=== PATIENT | female | born 1940 | race Caucasian/White ===

== ENCOUNTER 2020-09-30 07:34 | Emergency (ER) | payer SELFPAY ==
[2020-09-30] VITALS (7 sets, daily range): BP systolic 137–195; BP diastolic 78–93; PULSE 58–62; RESP 15–19; TEMP 36.7; O2SAT 92–95; BMI 25.6
--- NOTE | 2020-09-30 07:49 | ECG_ITS ---
APPROVED REPORT Exam: Resting ECG HR:59 bpm ECG Measurements Heart Rate 59 AXES [place] 212 P 25 QRSd 92 QRS -16 QT 448 T 30 QTc 443 Conclusion Sinus bradycardia with 1st degree AV block Incomplete right bundle branch block Latge r wave progression Abnormal ECG Electronically signed by : Wilfrid Dudley, 09/30/2020 19:49:09
--- NOTE | 2020-09-30 07:58 | XR_ITS ---
PROCEDURE: XR CHEST PORTABLE CLINICAL HISTORY: weakness Cough COMPARISON: No exams were available for comparison FINDINGS: The cardiomediastinal silhouette and pulmonary vascularity are within normal limits. The lungs are clear without infiltrates, suspicious nodules, or pleural effusions. No acute bony abnormalities. IMPRESSION: No acute findings. Dictated by: Dom Lawson MD 09/30/2020 08:24 Dom Lawson MD in [facility] 09/30/2020 08:24
[2020-09-30 08:21] LABS: Chloride 83 mmol/L (98-107); Sodium 123 mmol/L (136-145)
[2020-09-30 08:23] LABS: Basophils % 0.3 % (0.1-2.0); Eosinophils % 0.2 % (0.1-12.0); Hemoglobin 15.2 g/dL (12.2-16.2); Lymphocytes # 0.8 K/mm3 (0.7-4.5); Lymphocytes % 33.3 % (10-50); Mean Corpuscular HGB Conc 33.8 g/dL (31.8-35.4); Mean Corpuscular Hemoglobin 29.7 pg (27.0-31.2); Mean Corpuscular Volume 87.8 fl (81-99); Mean Platelet Volume 8.1 fl (7.4-10.4); Monocytes # 0.3 K/mm3 (0.1-1.0); Monocytes % 11.7 % (1.7-9.3); Neutrophils # 1.2 K/mm3 (1.8-7.8); Neutrophils % 54.4 % (37.0-80.0); Platelet Count 151 K/mm3 (142-424); Red Blood Count 5.13 M/mm3 (4.20-5.40); Red Cell Distribution Width 12.5 % (11.5-17.5); White Blood Count 2.3 K/mm3 (4.8-10.8)
--- NOTE | 2020-09-30 08:23 | HMH.EDGENADL ---
ED Disposition Clinical Impression: Hypokalemia, Generalized weakness Disposition: Home, Self-Care Condition on Discharge: Good Instructions: DI for Hypokalemia, DI for Muscle Weakness Additional Instructions: You have been evaluated for generalized weakness, diagnosed with hypokalemia. Please follow-up with your primary care doctor in the next few days for symptom recheck. Take potassium supplementation. Try to eat a balanced diet. Return to the emergency department if you have any new or worsening symptoms. Prescriptions: Potassium Chloride 40 meq PO DAILY 10 Days #20 tablet.er Transmission Status: Pending to [facility] Referrals: PCP,No [Non-Staff] - Time of Disposition: 10:17 - Critical Care Critical Care Time: No Attestation: On , the high probability of a clinically significant, sudden or life threatening deterioration of the following system(s) required my full and direct attention, intervention and personal management. The time I documented below is in addition to time spent performing reported procedures but includes the following listed in this critical care notation. Medical Decision Making - Medical Records Medical records reviewed: Yes: I reviewed the patient's medical records. - Chi Inquiry Pt receiving controlled substance: No Vital Signs: 09/30/20 07:35 09/30/20 07:56 09/30/20 08:14 Temperature 98.0 F Temperature Source Oral Pulse Rate [Left Radial] 62 59 L 60 Respiratory Rate 19 Blood Pressure [Right Arm] 195/93 H 176/91 H 173/79 H Blood Pressure Mean [Right Arm] 127 119 110 Blood Pressure Source [Right Arm] Automatic Cuff Automatic Cuff Automatic Cuff Blood Pressure Position [Right Arm] Sitting Sitting Sitting 02 Sat by Pulse Oximetry 94 L 92 L 95 Oxygen Delivery Method Room Air Room Air Room Air 09/30/20 08:30 09/30/20 09:37 Temperature Temperature Source Pulse Rate [Left Radial] 60 59 L Respiratory Rate 15 Blood Pressure [Right Arm] 189/81 H 158/80 H Blood Pressure Mean [Right Arm] 117 106 Blood Pressure Source [Right Arm] Automatic Cuff Automatic Cuff Blood Pressure Position [Right Arm] Sitting Sitting 02 Sat by Pulse Oximetry 92 L 92 L Oxygen Delivery Method Room Air Room Air - Lab Data Lab Results 09/30/20 07:50: WBC 2.3 L, RBC 5.13, Hgb 15.2, Hct 45.0, MCV 87.8, MCH 29.7, MCHC 33.8, RDW 12.5, Plt Count 151, MPV 8.1, Neut % (Auto) 54.4, Lymph % (Auto) 33.3, [place] % (Auto) 11.7 H, Eos % (Auto) 0.2, Baso % (Auto) 0.3, Neut # (Auto) 1.2 L, Lymph # (Auto) 0.8, [place] # (Auto) 0.3, Eos # (Auto) 0.0, Baso # (Auto) 0.0 09/30/20 07:50: Sodium 123 L, Potassium 2.7 L*, Chloride 83 L, Carbon Dioxide 32 H, Anion Gap 10.7, BUN 7, Creatinine 0.50 L, Estimated Creat Clear 45, Estimated GFR 119, Est GFR ( Amer) 144, Glucose 128 H, Calcium 8.7, Troponin I < 0.01 09/30/20 07:50: SARS-CoV-2 IgG Ab (Rapid) Positive A, SARS-CoV-2 IgM Ab (Rapid) Negative 09/30/20 07:50: NT-Pro-B Natriuret Pep 902 H 09/30/20 09:00: Urine Color Yellow, Urine Appearance Clear, Urine pH 7.0, Ur Specific [place] 1.020, Urine Protein 1+, Urine Glucose (UA) Negative, Urine Ketones 1+, Urine Blood 2+, Urine Nitrate Negative, Urine Bilirubin Negative, Urine Urobilinogen 0.2, Ur Leukocyte Esterase Negative, Urine RBC 5-10, Urine WBC 3-5, Ur Squamous Epith Cells 3-5 Result diagrams: 09/30/20 07:50 09/30/20 07:50 Orders (Tests/Meds): ED MEDICATIONS Discontinued Medications Generic Name Dose Route Start Last Admin Trade Name Freq PRN Reason Stop Dose Admin Potassium Chloride 40 meq 09/30/20 08:54 09/30/20 09:00 Potassium Chloride 20meq Tab PO 09/30/20 08:55 40 meq ONCE ONE Administration ORDERS Category Date Time Status Monoscreen (Rapid) Stat Lab 09/30/20 10:10 Ordered Troponin I Q3H Lab 09/30/20 11:00 Ordered Troponin I Q3H Lab 09/30/20 14:00 Ordered - ECG Data Tracing #1 Sinus bradycardia with rate of 59 bpm. QRS 92, QTc 443. First-deg
[2020-09-30 08:24] LABS: Anion Gap 10.7 mEq/L (5-15); Blood Urea Nitrogen 7 mg/dl (7-17); Calcium 8.7 mg/dl (8.4-10.2); Carbon Dioxide 32 mmol/L (22.0-30.0); Creatinine Clearance Estimated 45 mL/min (50-200); Estimated Glomerular Filt Rate 119 ml/min (>60); GFR (African American) 144 ML/MIN (>60); Glucose 128 mg/dl (74-100)
[2020-09-30 08:27] LABS: Potassium 2.7 mmoL/L (3.5-5.1)
--- NOTE | 2020-09-30 08:28 | PC.NURSE ---
Critical potassium, Md aware
[2020-09-30 08:35] LABS: NT Pro Brain Natriuretic Pep. 902 pg/mL (0-450)
[2020-09-30 08:38] LABS: Troponin I < 0.01 ng/ml (0.00-0.034)
[2020-09-30 08:40] LABS: Coronavirus 19 IgG Antibody Positive (Negative); Coronavirus 19 IgM Antibody Negative (Negative)
[2020-09-30 09:15] LABS: Microscopic, Urine URINE MICROSCOPIC (MICROSCOPIC)
[2020-09-30 09:20] LABS: Appearance,Urine CLEAR (Clear); Bilirubin,Urine Negative (Negative); Blood, Urine 2+ (Negative); Color,Urine YELLOW (Yellow); Glucose,Urine (UA) Negative (Negative); Ketones,Urine 1+ (Negative); Leukocyte Esterase,Urine Negative (Negative); Nitrate,Urine Negative (Negative); Protein,Urine 1+ (Negative); Urobilinogen,Urine 0.2 EU/dl (0.2)
--- NOTE | 2020-09-30 10:02 | PC.NURSE ---
pt walked to restroom with minimal assistance.
[2020-09-30 10:35] LABS: Monoscreen (Rapid) Negative (Negative)
== END 2020-09-30 10:36 | disposition home or self-care (01) ==
PROVIDERS: Emergency Medicine; Emergency Provider Emergency Medicine; PCP Nurse Practitioner Family
DX: E87.6 Hypokalemia (principal); R53.83 Other fatigue; Z01.84 Encounter for antibody response examination; I10 Essential (primary) hypertension; Z79.899 Other long term (current) drug therapy; Z88.2 Allergy status to sulfonamides
CPT/HCPCS: 71045; 80048; 81001; 83880; 84484; 85025; 86318; 86328; 93005; 99284

== ENCOUNTER 2020-10-11 11:27 | Emergency (ER) | payer SELFPAY ==
[2020-10-11 11:28] VITALS: BP 201/95; PULSE 69; RESP 16; TEMP 36.8; O2SAT 98; BMI 26.6
--- NOTE | 2020-10-11 11:43 | ECG_ITS ---
APPROVED REPORT Exam: Resting ECG HR:63 bpm ECG Measurements Heart Rate 63 AXES [place] 172 P 11 QRSd 70 QRS -13 QT 390 T 47 QTc 399 Conclusion Normal sinus rhythm Cannot rule out Anterior infarct, age undetermined Abnormal ECG Electronically signed by : Wilfrid Dudley, 10/12/2020 19:56:32
--- NOTE | 2020-10-11 11:50 | XR_ITS ---
PROCEDURE: XR CHEST PORTABLE CLINICAL HISTORY: cough Weakness and cough COMPARISON: CR XR CHEST PORTABLE from 09/30/2020 FINDINGS: The cardiomediastinal silhouette and pulmonary vascularity are within normal limits. The lungs are clear without infiltrates, suspicious nodules, or pleural effusions. There is calcified granuloma in the right lower lobe. Upper lobes are clear. IMPRESSION: No acute findings. Dictated by: Dom Lawson MD 10/11/2020 14:10 Dom Lawson MD in [facility] 10/11/2020 14:10
--- NOTE | 2020-10-11 11:51 | CT_ITS ---
PROCEDURE: CT HEAD/BRAIN WO CON CLINICAL INDICATION: weakness Total-body weakness COMPARISON: No exams were available for comparison TECHNIQUE: Axial images obtained. All CT scans at the facility use one or more dose reduction, viz: automated exposure control, ma/kV adjustment per patient size (including targeted exams where dose is matched to indication, i.e. head), or iterative reconstruction technique. FINDINGS: No midline shift, mass effect, intracranial hemorrhage, hydrocephalus, or extra-axial fluid collection is evident. There is generalized atrophy with hypoattenuation of the periventricular white matter consistent with microangiopathic changes.. There is an lacunar infarction in the right subinsular region. The calvarium has an unremarkable appearance. No mastoid effusion. Mild mucosal thickening involves the ethmoid sinuses and right frontal sinus. IMPRESSION: 1. No acute intracranial findings. 2. Mild sinus disease Dictated by: Dom Lawson MD 10/11/2020 14:12 Dom Lawson MD in [facility] 10/11/2020 14:12
[2020-10-11 11:58] VITALS: BP 178/99; PULSE 64; RESP 16; O2SAT 96
--- NOTE | 2020-10-11 11:58 | HMH.EDWEAK ---
ED Disposition Clinical Impression: Generalized weakness, COVID-19 Hypertension Qualifiers: Hypertension type: essential hypertension Qualified Code(s): I10 - Essential (primary) hypertension Disposition: Home, Self-Care Condition on Discharge: Good Instructions: Hypertension (Alternative Therapy) Referrals: Melissa Arreguin [Primary Care Provider] - - Critical Care Critical Care Time: No Attestation: On , the high probability of a clinically significant, sudden or life threatening deterioration of the following system(s) required my full and direct attention, intervention and personal management. The time I documented below is in addition to time spent performing reported procedures but includes the following listed in this critical care notation. Medical Decision Making - Medical Records Medical records reviewed: Yes: I reviewed the patient's medical records. - Chi Inquiry Pt receiving controlled substance: No Vital Signs: 10/11/20 11:28 10/11/20 11:58 10/11/20 12:28 Temperature 98.2 F Temperature Source Oral Pulse Rate [Radial] 69 64 67 Respiratory Rate 16 16 18 Blood Pressure [Right Arm] 201/95 H 178/99 H 219/108 H Blood Pressure Mean [Right Arm] 130 125 145 Blood Pressure Position [Right Arm] Sitting Sitting Sitting 02 Sat by Pulse Oximetry 98 96 96 Oxygen Delivery Method Room Air - Lab Data Lab Results 10/11/20 11:51: WBC 7.3, RBC 5.51 H, Hgb 16.7 H, Hct 49.7 H, MCV 90.2, MCH 30.3, MCHC 33.5, RDW 14.2, Plt Count 245, MPV 8.2, Neut % (Auto) 69.2, Lymph % (Auto) 24.2, [place] % (Auto) 5.8, Eos % (Auto) 0.4, Baso % (Auto) 0.4, Neut # (Auto) 5.0, Lymph # (Auto) 1.8, [place] # (Auto) 0.4, Eos # (Auto) 0.0, Baso # (Auto) 0.0 10/11/20 11:51: Sodium 130 L, Potassium 3.8, Chloride 91 L, Carbon Dioxide 30, Anion Gap 12.8, BUN 9, Creatinine 0.60, Estimated Creat Clear 51, Estimated GFR 96, Est GFR ( Amer) 116, Glucose 97, Calcium 9.4, Total Bilirubin 1.0, AST 33, ALT 22, Alkaline Phosphatase 79, Troponin I < 0.01, Total Protein 7.7, Albumin 4.8, Globulin 2.9, Albumin/Globulin Ratio 1.7, TSH 3.58 10/11/20 11:51: PT 12.7 H, INR 1.16 H, APTT 28.5 10/11/20 11:51: Lactate 1.4 10/11/20 11:51: NT-Pro-B Natriuret Pep 497 H 10/11/20 11:51: SARS-CoV-2 IgG Ab (Rapid) Positive A, SARS-CoV-2 IgM Ab (Rapid) Positive A 10/11/20 12:32: Urine Color Yellow, Urine Appearance Clear, Urine pH 7.5, Ur Specific [place] 1.015, Urine Protein Negative, Urine Glucose (UA) Negative, Urine Ketones Negative, Urine Blood 1+, Urine Nitrate Negative, Urine Bilirubin Negative, Urine Urobilinogen 0.2, Ur Leukocyte Esterase Negative, Urine RBC 3-5, Urine WBC None, Ur Squamous Epith Cells Occasional, Urine Bacteria None Result diagrams: 10/11/20 11:51 10/11/20 11:51 Orders (Tests/Meds): ED MEDICATIONS Discontinued Medications Generic Name Dose Route Start Last Admin Trade Name Freq PRN Reason Stop Dose Admin Labetalol HCl 10 mg 10/11/20 11:51 10/11/20 12:04 Labetalol 20mg/4ml Syringe IV 10/11/20 11:52 Not Given ONCE ONE ORDERS Category Date Time Status CT head/brain wo con Stat Cat Scan 10/11/20 11:51 Taken XR chest portable Stat Exams 10/11/20 11:50 Taken Full Resp Panel w/COVID ([facility]) Routine Lab 10/11/20 12:57 Received Troponin I Q3H Lab 10/11/20 15:00 Ordered Troponin I Q3H Lab 10/11/20 18:00 Ordered Blood Culture Stat Micro 10/11/20 11:51 Received - CT Data CT Scan: Head Time Received: 13:[address] Reviewed: Yes: I have reviewed the patient's CT results, I have viewed the radiologist's interpretation Preliminary Findings: Normal/NAD - ECG Data Tracing #1 EKG showed a normal ventricular rate of 63 bpm, MT interval 172 ms, normal QTC. Normal sinus rhythm with nonspecific changes. ECG initial impression date: 10/11/20 ECG initial impression time: 11:45 - Reevaluation(s) Time: 13:55 Reevaluation #1: On reevaluation, patient is feeling better. Blood pressure is improved with
[2020-10-11 12:04] LABS: Basophils % 0.4 % (0.1-2.0); Eosinophils % 0.4 % (0.1-12.0); Hematocrit 49.7 % (37.0-47.0); Hemoglobin 16.7 g/dL (12.2-16.2); Lymphocytes # 1.8 K/mm3 (0.7-4.5); Lymphocytes % 24.2 % (10-50); Mean Corpuscular HGB Conc 33.5 g/dL (31.8-35.4); Mean Corpuscular Hemoglobin 30.3 pg (27.0-31.2); Mean Corpuscular Volume 90.2 fl (81-99); Mean Platelet Volume 8.2 fl (7.4-10.4); Monocytes # 0.4 K/mm3 (0.1-1.0); Monocytes % 5.8 % (1.7-9.3); Neutrophils % 69.2 % (37.0-80.0); Platelet Count 245 K/mm3 (142-424); Red Blood Count 5.51 M/mm3 (4.20-5.40); Red Cell Distribution Width 14.2 % (11.5-17.5); White Blood Count 7.3 K/mm3 (4.8-10.8)
[2020-10-11 12:06] LABS: Chloride 91 mmol/L (98-107)
[2020-10-11 12:07] LABS: Potassium 3.8 mmoL/L (3.5-5.1); Sodium 130 mmol/L (136-145)
[2020-10-11 12:09] LABS: Alanine Aminotransferase 22 U/L (12-78); Alkaline Phosphatase 79 U/L (38-126); Anion Gap 12.8 mEq/L (5-15); Aspartate Amino Transferase 33 U/L (14-36); Blood Urea Nitrogen 9 mg/dl (7-17); Carbon Dioxide 30 mmol/L (22.0-30.0); Creatinine Clearance Estimated 51 mL/min (50-200); Estimated Glomerular Filt Rate 96 ml/min (>60); GFR (African American) 116 ML/MIN (>60)
[2020-10-11 12:10] LABS: Albumin Level 4.8 g/dl (3.5-5.0); Albumin/Globulin Ratio 1.7 (1.1-1.8); Calcium 9.4 mg/dl (8.4-10.2); Globulin 2.9 g/dL (1.3-3.2); Glucose 97 mg/dl (74-100); Total Protein,Serum 7.7 g/dl (6.3-8.2)
[2020-10-11 12:14] LABS: Activated Partial Thrombo Time 28.5 seconds (23.6-34.0); INR 1.16 (0.9-1.1); Lactic Acid 1.4 mmol/L (0.7-2.1); Prothrombin Time 12.7 seconds (9.4-11.8)
[2020-10-11 12:20] LABS: NT Pro Brain Natriuretic Pep. 497 pg/mL (0-450)
[2020-10-11 12:23] LABS: Troponin I < 0.01 ng/ml (0.00-0.034)
[2020-10-11 12:28] VITALS: BP 219/108; PULSE 67; RESP 18; O2SAT 96
[2020-10-11 12:41] LABS: Thyroid Stimulating Hormone 3.58 uIU/mL (0.465-4.68)
[2020-10-11 12:48] LABS: Coronavirus 19 IgG Antibody Positive (Negative)
[2020-10-11 12:49] LABS: Coronavirus 19 IgM Antibody Positive (Negative)
[2020-10-11 12:52] LABS: Microscopic, Urine URINE MICROSCOPIC (MICROSCOPIC)
[2020-10-11 12:59] LABS: Appearance,Urine CLEAR (Clear); Bilirubin,Urine Negative (Negative); Blood, Urine 1+ (Negative); Color,Urine YELLOW (Yellow); Glucose,Urine (UA) Negative (Negative); Ketones,Urine Negative (Negative); Leukocyte Esterase,Urine Negative (Negative); Nitrate,Urine Negative (Negative); PH,Urine 7.5 (5.0-8.5); Protein,Urine Negative (Negative); Specific Gravity, Urine 1.015 (1.005-1.030); Urobilinogen,Urine 0.2 EU/dl (0.2)
[2020-10-11 13:09] LABS: Squamous Epithelial Cell,Urine Occasional #/hpf (0-5)
[2020-10-11 14:18] VITALS: BP 164/67; PULSE 67; RESP 17; TEMP 36.8; O2SAT 98
== END 2020-10-11 14:19 | disposition home or self-care (01) ==
PROVIDERS: Emergency Provider Emergency Medicine; PCP Nurse Practitioner Family
DX: U07.1 COVID-19 (principal); I10 Essential (primary) hypertension; Z01.84 Encounter for antibody response examination; Z88.2 Allergy status to sulfonamides
CPT/HCPCS: 70450; 71045; 80053; 81001; 83605; 83880; 84443; 84484; 85025; 85610; 85730; 86328; 87040; 93005; 99284; U0003

== ENCOUNTER 2020-10-13 23:37 | Emergency (ER) | payer SELFPAY ==
[2020-10-13 23:41] VITALS: BP 197/85; PULSE 58; O2SAT 98
[2020-10-13 23:49] VITALS: BMI 32513.8
[2020-10-14 00:02] VITALS: BP 197/85; BP 221/79; PULSE 63; RESP 18; TEMP 36.6; O2SAT 98; BMI 33.8
--- NOTE | 2020-10-14 00:14 | ECG_ITS ---
APPROVED REPORT Exam: Resting ECG HR:60 bpm ECG Measurements Heart Rate 60 AXES [place] 206 P 72 QRSd 82 QRS 28 QT 412 T 47 QTc 412 Conclusion Normal sinus rhythm Nonspecific T wave abnormality Abnormal ECG Electronically signed by : Wilfrid Dudley, 10/14/2020 19:34:52
--- NOTE | 2020-10-14 00:37 | XR_ITS ---
PROCEDURE: XR CHEST PORTABLE CLINICAL HISTORY: high bp Hypertension, Covid19 positive COMPARISON: CR XR CHEST PORTABLE from 09/30/2020 CR XR CHEST PORTABLE from 10/11/2020 FINDINGS: The cardiomediastinal silhouette and pulmonary vascularity are within normal limits. There is a 7 nodular opacity in the right perihilar region. Calcified granuloma is present in the left upper lobe. The remaining lungs are clear. No acute bony abnormalities. IMPRESSION: No acute finding. 7 mm nodule right lower lung zone. Consider chest CT for further evaluation. Dictated by: Dom Lawson MD 10/14/2020 05:18 Dom Lawson MD in [facility] 10/14/2020 05:18
--- NOTE | 2020-10-14 00:47 | PC.NURSE ---
Radiology at bedside
--- NOTE | 2020-10-14 00:57 | PC.NURSE ---
Called lab to assist with obtaining the rest of blood cultures. Lab states it will be a few minutes.
[2020-10-14 01:01] LABS: Basophils % 0.4 % (0.1-2.0); Eosinophils % 0.6 % (0.1-12.0); Hematocrit 45.8 % (37.0-47.0); Hemoglobin 15.8 g/dL (12.2-16.2); Lymphocytes # 2.2 K/mm3 (0.7-4.5); Lymphocytes % 28.2 % (10-50); Mean Corpuscular HGB Conc 34.4 g/dL (31.8-35.4); Mean Corpuscular Hemoglobin 30.8 pg (27.0-31.2); Mean Corpuscular Volume 89.5 fl (81-99); Mean Platelet Volume 8.1 fl (7.4-10.4); Monocytes # 0.5 K/mm3 (0.1-1.0); Monocytes % 6.2 % (1.7-9.3); Neutrophils # 5.1 K/mm3 (1.8-7.8); Neutrophils % 64.7 % (37.0-80.0); Platelet Count 217 K/mm3 (142-424); Red Blood Count 5.12 M/mm3 (4.20-5.40); Red Cell Distribution Width 13.6 % (11.5-17.5); White Blood Count 7.9 K/mm3 (4.8-10.8)
[2020-10-14 01:05] LABS: Alanine Aminotransferase 16 U/L (12-78); Albumin Level 4.4 g/dl (3.5-5.0); Albumin/Globulin Ratio 1.7 (1.1-1.8); Alkaline Phosphatase 65 U/L (38-126); Anion Gap 9.7 mEq/L (5-15); Aspartate Amino Transferase 36 U/L (14-36); Blood Urea Nitrogen 9 mg/dl (7-17); Calcium 9.2 mg/dl (8.4-10.2); Carbon Dioxide 31 mmol/L (22.0-30.0); Chloride 93 mmol/L (98-107); Creatinine Clearance Estimated 59 mL/min (50-200); Estimated Glomerular Filt Rate 119 ml/min (>60); GFR (African American) 144 ML/MIN (>60); Globulin 2.6 g/dL (1.3-3.2); Glucose 104 mg/dl (74-100); Lactic Acid 0.9 mmol/L (0.7-2.1); Potassium 3.7 mmoL/L (3.5-5.1); Sodium 130 mmol/L (136-145)
[2020-10-14 01:10] LABS: C-Reactive Protein 1.4 mg/L (0-4)
[2020-10-14 01:11] VITALS: BP 176/78; BP 180/76
[2020-10-14 01:14] LABS: NT Pro Brain Natriuretic Pep. 478 pg/mL (0-450)
[2020-10-14 01:42] LABS: Troponin I < 0.01 ng/ml (0.00-0.034)
[2020-10-14 01:45] VITALS: BP 155/71; PULSE 70; RESP 17; O2SAT 99
--- NOTE | 2020-10-14 01:50 | HMH.EDWEAK ---
ED Disposition Clinical Impression: COVID-19, Hyponatremia Hypertension Qualifiers: Hypertension type: essential hypertension Qualified Code(s): I10 - Essential (primary) hypertension Disposition: Home, Self-Care Condition on Discharge: Good Instructions: Essential Hypertension Additional Instructions: call your pcp for treatment Referrals: PCP,No [Primary Care Provider] - - Critical Care Critical Care Time: No Attestation: On 10/13/20, the high probability of a clinically significant, sudden or life threatening deterioration of the following system(s) required my full and direct attention, intervention and personal management. The time I documented below is in addition to time spent performing reported procedures but includes the following listed in this critical care notation. Medical Decision Making - Medical Records Medical records reviewed: Yes: I reviewed the patient's medical records. - Chi Inquiry Pt receiving controlled substance: No Vital Signs: 10/13/20 23:41 10/14/20 00:02 10/14/20 01:11 Temperature 98 F Temperature Source Oral Pulse Rate [Right] 58 L 63 Respiratory Rate 18 Blood Pressure [Left Arm] 176/78 H Blood Pressure [Right Arm] 197/85 H 180/76 H Blood Pressure [Right Radial Artery] 197/85 H 221/79 H Blood Pressure Mean [Left Arm] 110 Blood Pressure Mean [Right Arm] 122 110 Blood Pressure Mean [Right Radial Artery] 122 126 Blood Pressure Source [Left Arm] Manual Cuff/ Auscultation Blood Pressure Source [Right Arm] Automatic Cuff Manual Cuff/ Auscultation Blood Pressure Source [Right Radial Artery] Automatic Cuff Automatic Cuff Manual Cuff/ Doppler Blood Pressure Position [Left Arm] Supine Blood Pressure Position [Right Arm] Supine Supine Blood Pressure Position [Right Radial Artery] Sitting Sitting Supine 02 Sat by Pulse Oximetry 98 98 Oxygen Delivery Method Room Air Room Air 10/14/20 01:45 10/14/20 02:16 Temperature Temperature Source Pulse Rate [Right] 70 58 L Respiratory Rate 17 19 Blood Pressure [Left Arm] 155/71 H 163/63 H Blood Pressure [Right Arm] Blood Pressure [Right Radial Artery] Blood Pressure Mean [Left Arm] 99 96 Blood Pressure Mean [Right Arm] Blood Pressure Mean [Right Radial Artery] Blood Pressure Source [Left Arm] Automatic Cuff Blood Pressure Source [Right Arm] Blood Pressure Source [Right Radial Artery] Blood Pressure Position [Left Arm] Sitting Blood Pressure Position [Right Arm] Blood Pressure Position [Right Radial Artery] 02 Sat by Pulse Oximetry 99 98 Oxygen Delivery Method Room Air - Lab Data Lab results reviewed: Yes: I reviewed the patient's lab results. Lab Results 10/14/20 00:04: Urine Color Yellow, Urine Appearance Clear, Urine pH 7.0, Ur Specific [place] 1.010, Urine Protein Negative, Urine Glucose (UA) Negative, Urine Ketones Negative, Urine Blood 1+, Urine Nitrate Negative, Urine Bilirubin Negative, Urine Urobilinogen 0.2, Ur Leukocyte Esterase Negative 10/14/20 00:50: WBC 7.9, RBC 5.12, Hgb 15.8, Hct 45.8, MCV 89.5, MCH 30.8, MCHC 34.4, RDW 13.6, Plt Count 217, MPV 8.1, Neut % (Auto) 64.7, Lymph % (Auto) 28.2, [place] % (Auto) 6.2, Eos % (Auto) 0.6, Baso % (Auto) 0.4, Neut # (Auto) 5.1, Lymph # (Auto) 2.2, [place] # (Auto) 0.5, Eos # (Auto) 0.0, Baso # (Auto) 0.0, ESR 7 10/14/20 00:50: Sodium 130 L, Potassium 3.7, Chloride 93 L, Carbon Dioxide 31 H, Anion Gap 9.7, BUN 9, Creatinine 0.50 L, Estimated Creat Clear 59, Estimated GFR 119, Est GFR ( Amer) 144 D, Glucose 104 H, Calcium 9.2, Total Bilirubin 1.0, AST 36, ALT 16 D, Alkaline Phosphatase 65, Troponin I < 0.01, C-Reactive Protein 1.4, Total Protein 7.0, Albumin 4.4, Globulin 2.6, Albumin/Globulin Ratio 1.7 10/14/20 00:50: Lactate 0.9 10/14/20 00:50: NT-Pro-B Natriuret Pep 478 H, Procalcitonin 0.030 10/14/20 00:50: SARS-CoV-2 IgG Ab (Rapid) Positive A, SARS-CoV-2 IgM Ab (Rapid) Positive A Result diagrams: 10/14/20 00:50 10/14/20
[2020-10-14 01:51] LABS: Erythrocyte Sedimentation Rate 7 mm/hr (0-30)
[2020-10-14 01:53] LABS: Coronavirus 19 IgG Antibody Positive (Negative); Coronavirus 19 IgM Antibody Positive (Negative)
[2020-10-14 02:16] VITALS: BP 163/63; PULSE 58; RESP 19; O2SAT 98
[2020-10-14 02:23] LABS: Microscopic, Urine URINE MICROSCOPIC (MICROSCOPIC)
[2020-10-14 02:24] LABS: Appearance,Urine CLEAR (Clear); Bilirubin,Urine Negative (Negative); Blood, Urine 1+ (Negative); Color,Urine YELLOW (Yellow); Glucose,Urine (UA) Negative (Negative); Ketones,Urine Negative (Negative); Leukocyte Esterase,Urine Negative (Negative); Nitrate,Urine Negative (Negative); Protein,Urine Negative (Negative); Urobilinogen,Urine 0.2 EU/dl (0.2)
[2020-10-14 02:30] VITALS: BP 156/64; PULSE 59; RESP 15; TEMP 36.7; O2SAT 98
[2020-10-14 02:30] LABS: Bacteria,Urine 1+ /lpf; Mucus,Urine 1+ /lpf; WBC,Urine Occasional #/hpf (0-3)
== END 2020-10-14 02:54 | disposition home or self-care (01) ==
PROVIDERS: Emergency Provider Emergency Medicine
DX: U07.1 COVID-19 (principal); Z01.84 Encounter for antibody response examination; I16.0 Hypertensive urgency; E87.1 Hypo-osmolality and hyponatremia; Z88.2 Allergy status to sulfonamides
CPT/HCPCS: 36415; 71045; 80053; 81001; 83605; 83880; 84145; 84484; 85025; 85651; 86140; 86328; 87040; 93005; 96365; 99284